=== PATIENT | female | born 1990 | race Asian ===

== ENCOUNTER 2019-07-19 11:28 | Emergency (ER) | payer OTHER ==
[~2019-07-19] VITALS: Ht 162.6 cm; Wt 55.8 kg
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
[2019-07-19 12:00] VITALS: BP 127/80
[2019-07-19] MEDS ORDERED: Ketorolac 60mg Inj IM ONE (12:00)
[2019-07-19] MEDS ORDERED: Omnipaque-300 100ml vial INJ PRN ×2 (12:00→12:45)
--- NOTE | 2019-07-19 12:15 | NUR ---
ED Nurse Note: Patient refusing pain medication, she states she does not feel her pain is very bad anymore and doesn't want to take pain medication. Nidia STRIPER notified.
--- NOTE | 2019-07-19 12:20 | NUR ---
ED Nurse Note: Patient stating she does not want any imaging until she talks to Dr. Alarcon. She states her jaw and arm "do not hurt that bad". Patient has [employer] insurance and is worried about being charged.
--- NOTE | 2019-07-19 13:07 | NUR ---
ED Nurse Note: Patient states that she still does not want any pain medication. She states she currently does not have any pain.
[2019-07-19 13:37] LABS: BASOPHILS % (AUTO) 0.8 % (0.0-2.0); EOSINOPHILS % (AUTO) 1.8 % (0.0-3.0); HEMATOCRIT 41.4 % (37.0-47.0); HEMOGLOBIN 13.8 G/DL (12.0-16.0); LYMPHOCYTES % (AUTO) 16.4 % (20.0-45.0); MEAN CORPUSCULAR VOLUME 87 FL (80-99); MONOCYTES % (AUTO) 5.4 % (1.0-10.0); NEUTROPHILS % (AUTO) 75.7 % (45.0-75.0); PLATELET COUNT 277 K/UL (150-450); RED BLOOD COUNT 4.79 M/UL (4.20-5.40); RED CELL DISTRIBUTION WIDTH 11.7 % (11.6-14.8); WHITE BLOOD COUNT 10.4 K/UL (4.8-10.8)
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
[2019-07-19 13:49] LABS: APPEARANCE,URINE CLEAR; BILIRUBIN, URINE NEGATIVE (NEGATIVE); COLOR,URINE PALE YELLOW; GLUCOSE, URINE (UA) NEGATIVE (NEGATIVE); KETONES,URINE NEGATIVE (NEGATIVE); LEUKOCYTE ESTERASE ,URINE NEGATIVE (NEGATIVE); NITRITE,URINE NEGATIVE (NEGATIVE); PH,URINE 6 (4.5-8.0); PROTEIN,URINE 1+ (NEGATIVE); UROBILINOGEN,URINE NORMAL MG/DL (0.0-1.0)
[2019-07-19 13:58] LABS: ANION GAP 8 mmol/L (5-15); BLOOD UREA NITROGEN 13 mg/dL (7-18); CALCIUM 8.6 MG/DL (8.5-10.1); CARBON DIOXIDE 29 MMOL/L (21-32); CHLORIDE 105 MMOL/L (98-107); CREATININE 0.6 MG/DL (0.55-1.30); POTASSIUM 4.1 MMOL/L (3.5-5.1); SODIUM 141 MMOL/L (136-145)
[2019-07-19 14:03] LABS: ALANINE AMINOTRANSFERASE 14 U/L (12-78); ALBUMIN/GLOBULIN RATIO 1.1 (1.0-2.7); ALKALINE PHOSPHATASE 43 U/L (46-116); ASPARTATE AMINO TRANSFERASE 11 U/L (15-37); BILIRUBIN,TOTAL 0.8 MG/DL (0.2-1.0)
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
[2019-07-19] MEDS ORDERED: ROBAXIN-500MG ORAL (15:09)
[2019-07-19] MEDS ORDERED: IBUPROFEN600 MG ORAL (15:09)
[2019-07-19] MEDS ORDERED: MUPIROCIN15 GM TOPIC (15:09)
[2019-07-19 15:19] VITALS: BP 118/73
== END 2019-07-19 15:19 | disposition home or self-care (01) ==
LOC: EMR 12:26
DX: S30.1XXA Contusion of abdominal wall, initial encounter (principal); N83.201 Unspecified ovarian cyst, right side; R07.9 Chest pain, unspecified; V49.9XXA Car occupant (driver) (passenger) injured in unspecified traffic accident, initial encounter; Y92.410 Unspecified street and highway as the place of occurrence of the external cause; S00.83XA Contusion of other part of head, initial encounter; S60.512A Abrasion of left hand, initial encounter; S60.511A Abrasion of right hand, initial encounter
CPT/HCPCS: 36415; 71260; 74177; 80053; 81003; 81025; 85025; 99284; Q9967